=== PATIENT | male | born 2000 | race Caucasian/White ===

== ENCOUNTER 2022-07-12 18:49 | Emergency (ER) | payer OTHER ==
[~2022-07-12] VITALS: Ht 157.5 cm; Wt 72.6 kg
[2022-07-12 18:49] VITALS: BP_SYST 169
--- NOTE | 2022-07-12 18:49 | NUR ---
BROUGHT IN BY [facility] WITH [facility] PT TRIAGED AND AWAITING ER BED.
[2022-07-12] MEDS ORDERED: OLANZapine IntraMuscular 10 MG VIAL (FOR I.M. INJECTION ONLY) IM ONE (19:00)
[2022-07-12 19:14] LABS: BILIRUBIN,URINE NEGATIVE (NEGATIVE); BLOOD, URINE NEGATIVE (NEGATIVE); CLARITY/URINE CLEAR (CLEAR); COLOR,URINE YELLOW (YELLOW); GLUCOSE,URINE NEGATIVE (NEGATIVE); KETONES,URINE TRACE (NEGATIVE); LEUKOCYTE ESTERASE ,URINE NEGATIVE (NEGATIVE); NITRITE, URINE NEGATIVE (NEGATIVE); PH,URINE 5.5 (5.0-8.0); PROTEIN URINE NEGATIVE (NEGATIVE); UROBILINOGEN,URINE 0.2 (0.2-1.0)
--- NOTE | 2022-07-12 19:14 | NUR ---
URINE SAMPLE OBTAINED AND TAKEN TO LAB.
[2022-07-12] MEDS ORDERED: LORazepam 2 MG/ML VIAL IM ONE (19:15)
[2022-07-12] MEDS ORDERED: HALOPERIDOL LACTATE 5 MG/ML VIAL IVP ONE (19:15)
[2022-07-12] MEDS ORDERED: DIPHENHYDRAMINE INJ 50 MG/ML VIAL IM ONE (19:15)
--- NOTE | 2022-07-12 19:40 | NUR ---
Placed in room 5 . Placed on monitoring tech, blood pressure machine and pulse oximeter. To gown for exam. Side rails up. Report given to Mp KOROMA(reg).
[2022-07-12 19:41] LABS: BASOPHILS % (AUTO) 0.3 % (0.0-2.0); EOSINOPHILS % (AUTO) 0.2 % (0.0-4.0); HEMATOCRIT 41.7 % (36-54); HEMOGLOBIN 14.5 g/dL (14.0-18.0); LYMPHOCYTES # (AUTO) 2.3 K/uL (1.0-5.5); LYMPHOCYTES % (AUTO) 20.5 % (20.5-51.5); MEAN CORPUSCULAR HEMOGLOBIN 29 pg (27-31); MEAN CORPUSCULAR HGB CONC 35 % (32-36); MEAN CORPUSCULAR VOLUME 85 fL (79.0-98.0); MONOCYTES # (AUTO) 0.7 K/uL (0.0-1.0); MONOCYTES % (AUTO) 6.5 % (1.7-9.3); NEUTROPHILS # (AUTO) 8.2 K/uL (1.8-7.7); NEUTROPHILS % (AUTO) 72.5 % (40.0-70.0); PLATELET COUNT (AUTO) 402 K/uL (130-430); RED BLOOD CELL COUNT(AUTO) 4.93 MIL/uL (4.2-6.2); RED CELL DISTRIBUTION WIDTH 13.2 % (9.0-15.0); WHITE BLOOD COUNT (AUTO) 11.3 K/uL (4.8-10.8)
[2022-07-12 19:59] LABS: ANION GAP 16 (5-15); CALCIUM 9.2 mg/dL (8.4-11.0); CHLORIDE 101 mmol/L (98-107); CREATININE 1.13 mg/dL (0.55-1.30); GLUCOSE 95 mg/dL (70-99); UREA NITROGEN, BLOOD 17 mg/dL (8-21)
[2022-07-12] MEDS ORDERED: LORazepam 2 MG/ML VIAL IVP ONE ×2 (20:00→21:45)
[2022-07-12 20:04] LABS: ALANINE AMINOTRANSFERASE 28 U/L (12-78); ALBUMIN 4.6 g/dL (3.4-4.8); ALCOHOL, BLOOD 150 mg/dL (<10); ASPARTATE AMINOTRANSFERASE 20 U/L (10-37); TOTAL BILIRUBIN 0.6 mg/dL (0.0-1.0)
[2022-07-12 20:05] LABS: ACETAMINOPHEN < 1 ug/mL (1-30); GFR AFRICAN AMERICAN 105 mL/min (>90)
--- NOTE | 2022-07-12 20:08 | NUR ---
CALLED [facility] TO ASK FOR SITTERM 0150 HOLD
--- NOTE | 2022-07-12 20:08 | NUR ---
Notified housesupervisor Lanny. Requested sitter for patient's 5150 status.
[2022-07-12 20:09] LABS: BARBITURATE, URINE NEGATIVE (NEG <=200); BENZODIAZEPINE, URINE NEGATIVE (NEG <=150); CANNABINOID, URINE POSITIVE (NEG <=50); COCAINE, URINE NEGATIVE (NEG <=150); METHAMPHETAMINES SCREEN,URINE NEGATIVE (NEG <=500); OPIATE, URINE NEGATIVE (NEG <=100); PHENCYCLIDINE SCREEN,URINE NEGATIVE (NEG <=25); UR TRICYCLIC ANTIDEPRESSANTS NEGATIVE (NEG <=300); URINE AMPHETAMINE NEGATIVE (NEG <=500); URINE METHADONE NEGATIVE (NEG <=200); URINE OXYCODONE SCREEN NEGATIVE (NEG <=100); URINE PROPOXYPHENE SCREEN NEGATIVE (NEG <=300)
--- NOTE | 2022-07-12 20:37 | NUR ---
Security at the bedside to hiwot still.
--- NOTE | 2022-07-12 21:38 | NUR ---
ER provider made aware of patient's elevated heart rate 140bpm. Pt is visibly irritated and attempting to remove restaints.
[2022-07-12] MEDS ORDERED: LORazepam 2 MG/ML VIAL ONE (21:39)
[2022-07-12] MEDS ORDERED: NACL 0.9% 1,000 ML IV ONE (21:45)
[2022-07-12] MEDS ORDERED: HALOPERIDOL LACTATE 5 MG/ML VIAL IM ONE (22:30)
[2022-07-12] MEDS ORDERED: HALOPERIDOL LACTATE 5 MG/ML VIAL ONE (22:35)
--- NOTE | 2022-07-12 23:15 | NUR ---
(BROTHER & MOTHER Contact info) 1. Dontrell Gill (brother) [phone] 2. Ester Frances (mother) [phone]
--- NOTE | 2022-07-13 | NUR ---
Pt restraints removed at this time. Pt cooperative and calm. Will continue to monitor patient's behavior.
--- NOTE | 2022-07-13 02:00 | NUR ---
Pt resting in bed with eyes closed. Resp even and unlabored. No acute distress noted.
--- NOTE | 2022-07-13 04:10 | NUR ---
Pt resting in stretcher with eyes closed. Pt does not want to continue to have monitor on. Pt walked to restroom to urinate. Water provided.
--- NOTE | 2022-07-13 07:15 | NUR ---
Report given to dayshift nurse.
--- NOTE | 2022-07-13 07:34 | NUR ---
ASSUMED PATIENT CARE, IN BED IN FULL CLOTHING AAOX4 ON 5150 FOR SI AND HI AWAITING FOR TRANSFER.
--- NOTE | 2022-07-13 08:32 | NUR ---
SECURITY CAME AND CHECK PATIENT AND ROOM.
--- NOTE | 2022-07-13 10:00 | NUR ---
PATIENT IN NAD, EYE CLOSE, EASILY AWAKEN.
--- NOTE | 2022-07-13 11:00 | NUR ---
PATIENT REMAINS IN BED IN [facility], WILL CONTINUE TO MONITOR.
--- NOTE | 2022-07-13 11:57 | NUR ---
Contacted [facility] request. Psych team noted awaiting bedfinders seeking bed for pt will update chano.
--- NOTE | 2022-07-13 12:46 | NUR ---
PATIENT REMAINS IN BED, WILL CONTINUE TO MONITOR.
[2022-07-13 15:13] VITALS: BP_SYST 116
--- NOTE | 2022-07-13 15:36 | NUR ---
SPOKE TO NATALI FROM [facility].
--- NOTE | 2022-07-13 16:18 | NUR ---
KP: [facility] at 1715 Pt to be transferred to [facility] [address] [place] Ames RN to call report: [phone]
--- NOTE | 2022-07-13 16:47 | NUR ---
PATIENT AWAKE WALKS TO BATHROOM TO URINATE AND BACK IN ROOM , PATIENT INFORMED LAMINATING MACHINE OPERATOR TIME.
--- NOTE | 2022-07-13 16:58 | NUR ---
REPORT GIVEN TO DANIEL KOROMA AT [facility].
--- NOTE | 2022-07-13 16:59 | NUR ---
AWAITING FOR TRANPORT.
--- NOTE | 2022-07-13 18:49 | NUR ---
Patient to be transferred to [facility]. Is being transferred due to higher level of care. Receiving facility has accepting physician and available space. ER physician has signed transfer form. Patient or responsible green party has agreed to transfer and signed form. Patient belongings inventoried and will be sent with patient. Copy of nursing notes, lab reports, EKG, Physicians Orders and X-rays to be sent with patient. Report called to at receiving facility. Receiving physician is . ambulance service has been called for transfer. ETA is .
== END 2022-07-13 18:48 ==
LOC: SED 18:49
DX: R45.1 Restlessness and agitation (principal); F10.129 Alcohol abuse with intoxication, unspecified; F12.120 Cannabis abuse with intoxication, uncomplicated; F91.9 Conduct disorder, unspecified; Z79.899 Other long term (current) drug therapy; Z20.822 Contact with and (suspected) exposure to COVID-19; Y90.6 Blood alcohol level of 120-199 mg/100 ml
CPT/HCPCS: 99291; 96374; 96361; 96375; 87426; 80307; 80053; 85025; 36415; 96376; 81003; 96372; G0482; J1200; J1630; J2060; J7030; G0480; G0481; 99281; J3490